=== PATIENT | female | born 1990 | race Hispanic/Latino ===

== ENCOUNTER 2018-07-15 20:15 | Emergency (ER) | payer BC ==
[2018-07-15 20:32] VITALS: BP 105/71; PULSE 98; RESP 16; TEMP 98.6; O2SAT 99
[2018-07-15] MEDS ORDERED: Lidocaine 2% MPF (5 ml) Inj INFIL ONE (20:36)
[2018-07-15] MEDS ORDERED: Lidocaine PF 2% (5 ml) Inj (For Cardiac Arrhy) ONE (20:44)
--- NOTE | 2018-07-15 21:03 | ED PDOC ---
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 She denies any numbness, tingling, or foreign body sensation. Patient states that her last tetanus vaccine was 1 year ago. PMD: none provided Past Medical History Reviewed: Historical Data, Nursing Documentation, Vital Signs Vital Signs: Last Vital Signs Temp 98.6 F 07/15/18 20:30 Pulse 98 H 07/15/18 20:30 Resp 16 07/15/18 20:30 BP 105/71 07/15/18 20:30 Pulse Ox 99 07/15/18 20:30 - Family History Family History: States: Unknown Family Hx - Allergies Allergies/Adverse Reactions: Allergies Allergy/AdvReac Type Severity Reaction Status Date / Time No Known Allergies Allergy Verified 07/15/18 20:30 Review of Systems ROS Statement: Except As Marked, All Systems Reviewed And Found Negative Musculoskeletal: Positive for: Hand Pain (right 3rd digit laceration). Negative for: Other (FB sensation) Neurological: Negative for: Numbness (or tingling sensation) Physical Exam - Reviewed Nursing Documentation Reviewed: Yes Vital Signs Reviewed: Yes - Physical Exam Appears: Positive for: No Acute Distress Pulses-Radial (L): 2+ Pulses-Radial (R): 2+ Extremity: Positive for: Normal ROM (all digits bilaterally), Capillary Refill (< 2 seconds to RUE), Other (1cm linear laceration to distal phalanx of right 3rd digit). Negative for: Deformity ( or pulsatile bleeding) Neurologic/Psych: Positive for: Alert, Oriented - ECG O2 Sat by Pulse Oximetry: 99 (RA) Pulse Ox Interpretation: Normal Medical Decision Making Medical Decision Making: Time: 2035 Initial Plan: * Xylocaine-MPF 2% 3ml INFIL * Laceration repair (see procedure note) Scribe Attestation: Documented by Claudia Shabazz, acting as a scribe for Bishop Reyes PA-C. Provider Scribe Attestation: All medical record entries made by the Scribe were at my direction and personally dictated by me. I have reviewed the chart and agree that the record accurately reflects my personal performance of the history, physical exam, medical decision making, and the department course for this patient. I have also personally directed, reviewed, and agree with the discharge instructions and disposition. Procedures - Time-Out Type of Procedure: Finger laceration Site of Procedure: R 3rd digit Correct Patient: Yes Correct Procedure: Yes Correct Site Marked: Yes - Laceration/Wound Repair Laceration repair Wound Length (cm): 1 Wound's Depth, Shape: superficial, linear Wound Explored: clean Irrigated w/ Saline (ccs): 300 Betadine Prep?: Yes Anesthesia: 1% Lidocaine Volume Anesthetic (ccs): 3 Wound Repaired With: Sutures Suture Size/Type: 5:0, proline Number of Sutures: 4 Layer Closure?: No Wound Complexity: Simple Disposition - Clinical Impression Clinical Impression: Finger laceration - Patient ED Disposition Is Patient to be Admitted: No - Disposition Referrals: [facility] [Outside] Disposition: Routine/Home Disposition Time: 21:33 Condition: STABLE Additional Instructions: SUTURE REMOVAL IN 7 DAYS MOR [place], thank you for letting us take care of you today. Your provider was Shabbir San MD and you were treated for RT FINGER INJURY. The emergency medical care you received today was directed at your acute symptoms. If you were prescribed any medication, please fill it and take as directed. It may take several days for your symptoms to resolve. Return to the Emergency Department if your symptoms worsen, do not improve, or if you have any other problems. Please contact your doctor or call one of the physicians/clinics you have been referred to that are listed on the Patient Visit Information form that is included in your discharge packet. Bring any paperwork you were given at discharge with you along with any medications you are taking to your follow up visit. Our treatment cannot replace ongoing medical care by a primary care provider outside of the emergency department. Thank you for allowing the [facility] team to be part of your care today. If you had an X-Ray or CT scan: A Radiologist will review the ED reading if any change in treatment is needed we will contact you. If you had a blood, urine, or wound culture: It will take several days for the results, if any change in treatment is needed we will contact you. If you had an STI test: It will take 48 hours for the results. Please call after 1 week if you have not heard back. Instructions: Laceration Repair With Stitches (DC) Forms: [employer] ([place])
== END 2018-07-15 21:47 | disposition home or self-care (01) ==
LOC: H.ER 20:15
DX: S61.202A Unspecified open wound of right middle finger without damage to nail, initial encounter (principal); W26.8XXA Contact with other sharp object(s), not elsewhere classified, initial encounter; Y92.89 Other specified places as the place of occurrence of the external cause